=== PATIENT | female | born 1960 | race Caucasian/White ===

== ENCOUNTER 2021-09-05 09:17 | Day surgery (SDC) | payer OTHER, SELFPAY ==
[~2021-09-05] VITALS: Ht 162.6 cm; Wt 63.5 kg
[2021-09-05] MEDS ORDERED: fentaNYL citrate 0.05 MG/ML VIAL ONE (12:59)
[2021-09-05] MEDS ORDERED: fentaNYL citrate 0.05 MG/ML VIAL IVP ONE (13:40)
== END 2021-09-05 14:15 | disposition home or self-care (01) ==
LOC: MDS 09:17 → MMU 09:37 → MDS 14:15
PROVIDERS: ATTEND Internal Medicine Gastroenterology
DX: Z12.11 Encounter for screening for malignant neoplasm of colon (principal); Z20.822 Contact with and (suspected) exposure to COVID-19
CPT/HCPCS: 45378; 87426; J3010